=== PATIENT | male | born 1990 | race Caucasian/White ===

== ENCOUNTER 2025-03-02 18:57 | Emergency (ER) | payer OTHER, SELFPAY ==
[2025-03-02 19:00] VITALS: BP 149/88; PULSE 87; RESP 20; TEMP 36.9; O2SAT 97; BMI 38.0
--- NOTE | 2025-03-02 19:08 | EDS_ITS ---
HPI History of Present Illness Chief Complaint: Trauma [facility] Home Medications ?Medication ?Instructions ?Recorded ?Last Taken ?Type NK 03/02/25 Unknown History Allergy/AdvReac Type Severity Reaction Status Date / Time No Known Allergies Allergy Verified 03/02/25 19:04 Social History Smoking Status: Never smoker EXAM Physical Exam Const Vital Signs: 03/02/25 19:00 03/02/25 19:19 03/02/25 20:00 Temperature 98.4 F Temperature Source Oral Pulse Rate 87 96 Respiratory Rate 20 H 21 H Respiratory Effort Normal Non-Labored Respiratory Depth Normal Respiratory Pattern Normal Blood Pressure 149/88 H Blood Pressure Mean 108 Pulse Ox 97 93 Oxygen Delivery Method Room Air Room Air Room Air 03/02/25 21:00 03/02/25 22:00 03/02/25 23:00 Temperature Temperature Source Pulse Rate 50 L 87 86 Respiratory Rate 19 H 19 H 17 Respiratory Effort Respiratory Depth Respiratory Pattern Blood Pressure 94/76 129/78 H 116/68 Blood Pressure Mean 82 95 84 Pulse Ox 96 96 97 Oxygen Delivery Method Room Air Room Air Room Air MDM MDM MDM Narrative Medical decision making narrative: HISTORY OF PRESENT ILLNESS: Chief complaint: Fall 34-year-old male presents after fall from [place] approximately 10 feet. He states occurred today. Notes is able to ambulate after fall however once he called EMS patient could not ambulate. He further states he suffered mechanical fall. Denies loss of conscious but notes head trauma. Takes no blood thinners. REVIEW OF SYSTEMS: Pertinent positives: Back pain Pertinent negatives: Vomiting PHYSICAL EXAM: Nursing triage notes reviewed, Vital signs reviewed Primary Survey Airway: Intact Breathing: Bilateral breath sounds Circulation: Palpable bilateral femorals, Palpable bilateral radial, Palpable bilateral DP and Palpable bilateral PT Disability / Spine precautions GCS Score: Eye Openin Verbal Response: 5 Motor Response: 6 Secondary Survey Constitutional: Please see MDM Head: Atraumatic, Midface stable, NO jaw malocclusion, No Cephalohematoma, and No Lacerations noted Eye: Pupils equal round and reactive to light, Extraocular muscles intact and No periorbital ecchymosis or stepoff, no evidence of entrapment ENT: Oropharynx clear, no lacerations, no hemotympanum, no raccoon eyes or borja sign Cervical spine / Neck: No cervical spine bony tenderness, crepitance, or stepoff deformity Trachea midline Lungs: Clear to auscultation, No asymmetric rise and No crepitus, no flail chest Cardiac: Regular rate and rhythm and No murmurs Abdomen: Soft, Nontender and No rebound Pelvis: Pelvis stable to compression : No evidence of genital injury Back: Significant TTP over lumbar spine. No obvious step-offs or deformities noted. Neuro: . Intact sensation L1-S1 dermatomal distributions. Intact 5/5 strength in hip flexion (T12-L3). Knee extension (L2-L4). Ankle dorsiflexion (L4-L5). Ankle plantar flexion (S1). Great toe extension (L5). 2+ patellar and Achilles DTRs. Extremities: NO gross Deformities, full range of motion with upper extremity wrist motion, elbow and shoulder motion. Intact knee flexion bilaterally. Intact plantar and dorsiflexion bilaterally. Psych: Normal affect Nursing triage notes reviewed, Vital signs reviewed MEDICAL DECISION MAKING: Chief Complaint: please see HPI External records reviewed: No prior ED visits Factors affecting care: none Social determinants of health: denies drug use History obtained from others: EMS Consults: none [facility] Narrative: Patient was initially hemodynamically, afebrile, nontoxic-appearing. Primary secondary trauma surveys concerning for the fall I considered the following differential diagnosis: Traumatic injuries of the head, axial skeleton, chest abdomen pelvis I obtained a broad lab and imaging work to further determine if the patient was suffering from a life-threatening etiology. Initially treat the patient with IV morphine, Zofran and 1 L normal saline. ALL IMAGES (IF OBTAINED) HAVE BEEN PERSONALLY REVIEWED AND INTERPRETED BY MYSELF. CT scan of the head, cervical spine, thoracic spine, chest abdomen pelvis shows no evidence of obvious bony abnormality. CT scan lumbar spine was read reviewed personally myself showed a L1 compression fracture. Of note and the patient ED course he suffered a syncopal episode. This occurred approximately 2129. Patient noted feeling hot, flushed, dizzy EKG at this time was nonischemic, not arrhythmogenic, no signs of WW, no signs of Brugada syndrome, no signs of right heart strain, it was normal sinus rhythm rate of 71, normal axis, normal intervals, no STEMI High-sensitivity troponin is negative, no evidence of myocardial ischemia Tertiary trauma exam with no new traumatic injuries. Patient did ambulate here without significant difficulty. Repeat neurologic exam shows an intact spine. The patient and/or family, caregivers express understanding. The patient and/or family, caregivers agrees with the plan. Shared decision making: I will have a discussion with the patient and or visitors regarding risk/benefits of further testing or admission. They will be made aware of of the risk/benefits inherent in this decision they will be given the opportunity to voice understanding. Total critical care time today provided was at least 0 minutes. This excludes separately billable procedures. Critical care time (if documented) is secondary to the patient having high probability of clinically significant/life threatening deterioration in the patient's condition which required my urgent intervention. Impression: 1. Fall 2. L1 compression fracture Dispo: Discharge This note was generated with [employer] dictation software. It may contain incorrect words, spelling, and punctuation that were not noted in review of the chart prior to signing. Lab Data Labs: Laboratory Results - last 24 hr 03/02/25 03/02/25 19:31 21:44 WBC 12.4 H RBC 4.67 Hgb 13.0 Hct 38.5 L MCV 82.4 MCH 27.8 MCHC 33.8 RDW Std Deviation 37.7 RDW Coeff of Connie 12.5 Plt Count 240 MPV 9.3 Immature Gran % (Auto) 0.600 Neut % (Auto) 78.7 H Lymph % (Auto) 13.1 L [place] % (Auto) 6.7 Eos % (Auto) 0.6 Baso % (Auto) 0.3 Absolute Neuts (auto) 9.8 H Absolute Lymphs (auto) 1.63 Nucleated RBC % 0 Sodium 138 Potassium 3.5 Chloride 107 Carbon Dioxide 20.4 L Anion Gap 11 BUN 13 Creatinine 0.80 Estim Creat Clear Calc 174.05 Est GFR (MDRD) Non-Af 119 BUN/Creatinine Ratio 16.0 Glucose 100 H Calcium 8.2 Total Bilirubin 0.28 Direct Bilirubin < 0.08 AST 29 ALT 18 Alkaline Phosphatase 52 Troponin T High Sens < 6 Troponin T Hi Sens 2 Hr 9 Total Protein 6.1 Albumin 3.7 Globulin 2.5 Radiography Diagnostic Testing: Clinical Impression(s) from Imaging Studies Brain CT 03/02/25 19:45 IMPRESSION: No acute intracranial abnormality. Reading Location: [id number] Cervical Spine CT 03/02/25 19:45 IMPRESSION: No acute fracture or malalignment. Reading Location: [facility] Chest/Abdomen/Pelvis CT 03/02/25 19:45 IMPRESSION: 1. Mild acute L1 vertebral body compression fracture. 2. No acute injury in the chest, abdomen or pelvis. 3. Splenic artery aneurysm (1.2 cm). Reading Location: [facility] Lumbar Spine CT 03/02/25 19:45 IMPRESSION: Acute mild anterosuperior L1 compression fracture. Reading Location: [facility] Thoracic Spine CT 03/02/25 19:45 IMPRESSION: Acute mild anterosuperior L1 compression fracture. Reading Location: [facility] Discharge Plan Triage Chief Complaint: Trauma ED Provider: Guanako Mei Dx/Rx/DC Orders Prescriptions: No Action NK Primary Care Provider: Mariella Duarte NP Referrals: Mariella Duarte NP, [employer]CTION[employer] AGENCY DIRECTOR-C [Primary Care Provider, Medical] Print Language: Uzbek
[2025-03-02] MEDS: 0.9% Normal Saline (1000mL) 1,000 ML 999 ML IV ×2 (19:26→21:40)
[2025-03-02 19:37] LABS: Hematocrit 38.5 % (40-54); Hemoglobin 13.0 g/dL (13.0-16.5); Immature Granulocytes Count 0.070 X10^3/uL (0.0-0.0); Mean Corp Hgb Conc 33.8 g/dL (32-36); Mean Corpuscular Volume 82.4 fL (80-94); Mean Platelet Vol. 9.3 fl (6.2-12.0); NRBC Flagged by Analyzer 0 % (0-5); Platelet Count 240 K/mm3 (150-450); RBC Distribution Width CV 12.5 % (11.6-14.6); RBC Distribution Width SD 37.7 fl (35.1-43.9); Red Blood Count 4.67 M/mm3 (4.6-6.2); White Blood Count 12.4 K/mm3 (4.4-11.0)
--- NOTE | 2025-03-02 19:45 | CT_ITS ---
PROCEDURE: CT CHEST, ABD, PEL W/CONTRAST 03/02/2025 REASON FOR EXAM: FALL, LOW BACK PAIN TECHNIQUE: Chest, abdomen and pelvis CT with intravenous contrast. Coronal and Sagittal reconstruction series were provided. One or more dose reduction techniques were used (e.g., Automated exposure control, adjustment of the mA and/or kV according to patient size, use of iterative reconstruction technique. PATIENT PREPARATION: Per protocol CONTRAST: Isovue 370 VOLUME: 94mL RADIATION DOSE SUMMARY: CTDlvol: 52.81, 27.63 mGy DLP: 2207, 1589 mGycm COMPARISON: None. FINDINGS: CHEST: LUNGS: No pulmonary mass. No focal airspace consolidation. Minimal dependent lower lobe atelectasis bilaterally. PLEURAL SPACES: No pleural effusion. No pneumothorax. HEART: No cardiomegaly. No significant pericardial effusion. MEDIASTINUM/HILUM: No significant lymphadenopathy. AORTA: No aneurysm or dissection. ESOPHAGUS: Mild fluid in the distal esophagus, may reflect esophageal dysmotility or reflux disease. SOFT TISSUES: The soft tissues are unremarkable. BONES: No acute osseous abnormality. ABDOMEN AND PELVIS: LIVER: Unremarkable. No focal lesions. GALLBLADDER: Unremarkable. No calcified stone. BILE DUCTS: No ductal dilation. PANCREAS: Unremarkable. SPLEEN: Unremarkable. ADRENAL GLANDS: Unremarkable. KIDNEYS: Unremarkable. No hydronephrosis or hydroureter. STOMACH AND BOWEL: No obstruction or perforation. No wall thickening. No CT evidence of colitis or acute diverticulitis. APPENDIX: Normal-appearing appendix. No CT evidence for appendicitis. RETRO/PERITONEUM: No free fluid. No free air. LYMPH NODES: No lymphadenopathy. PELVIC ORGANS: Unremarkable urinary bladder and seminal vesicles. Nonspecific prostate gland calcifications. VASCULATURE: No aortic aneurysm. There is a 1.2 cm splenic artery aneurysm SOFT TISSUES: The soft tissues are unremarkable. BONES: Acute anterosuperior compression fracture of the L1 vertebral body with roughly 10-15% loss in body height. CT/CT Chest, Abd, Pel w/Contrast IMPRESSION: 1. Mild acute L1 vertebral body compression fracture. 2. No acute injury in the chest, abdomen or pelvis. 3. Splenic artery aneurysm (1.2 cm). Reading Location: [facility]
--- NOTE | 2025-03-02 19:45 | CT_ITS ---
PROCEDURE: SPINE LUMBAR WITHOUT CONTRAST; SPINE THORACIC WITHOUT CONTRAS 03/02/2025 REASON FOR EXAM: FALL, LOW BACK PAIN; MID BACK PAIN TECHNIQUE: Procedure Code: CTSPL; CTSPTH Modality: CT Procedure: SPINE LUMBAR WITHOUT CONTRAST; SPINE THORACIC WITHOUT CONTRAS Coronal and Sagittal reconstruction series were provided. One or more dose reduction techniques were used (e.g., Automated exposure control, adjustment of the mA and/or kV according to patient size, use of iterative reconstruction technique COMPARISON: None. RADIATION DOSE SUMMARY: CTDlvol: 42.11, 22.80, 26.54 mGy DLP: 1813, 11.40, 795 mGycm FINDINGS: BONES: Acute anterosuperior compression fracture of the L1 vertebral body with roughly 10-15% loss in body height. No focal osseous lesion. Bony alignment is anatomic. Nonspecific straightening of the normal lumbar lordosis. DISCS / DEGENERATIVE CHANGES: No significant disc or facet degeneration. No significant central canal or neural foraminal stenosis. SOFT TISSUES: No prevertebral soft tissue swelling. No apical pneumothorax. CT/Spine Lumbar without Contrast IMPRESSION: Acute mild anterosuperior L1 compression fracture. Reading Location: [id number]
--- NOTE | 2025-03-02 19:45 | CT_ITS ---
PROCEDURE: CT SPINE CERVICAL WITHOUT CONTRAST 03/02/2025 REASON FOR EXAM: FALL, NECK TRAUMA TECHNIQUE: Procedure Code: CTS Modality: CT Procedure: SPINE CERVICAL WITHOUT CONTRAS Coronal and Sagittal reconstruction series were provided. One or more dose reduction techniques were used (e.g., Automated exposure control, adjustment of the mA and/or kV according to patient size, use of iterative reconstruction technique. RADIATION DOSE SUMMARY: DLP: 7736.5 mGycm COMPARISON: None. FINDINGS: No acute fracture or subluxation. Alignment is anatomic. No significant degenerative changes appreciated. No prevertebral soft tissue swelling or unusual mineralization. CT/Spine Cervical without Contras IMPRESSION: No acute fracture or malalignment. Reading Location: [id number]
--- NOTE | 2025-03-02 19:45 | CT_ITS ---
PROCEDURE: SPINE LUMBAR WITHOUT CONTRAST; SPINE THORACIC WITHOUT CONTRAS 03/02/2025 REASON FOR EXAM: FALL, LOW BACK PAIN; MID BACK PAIN TECHNIQUE: Procedure Code: CTSPL; CTSPTH Modality: CT Procedure: SPINE LUMBAR WITHOUT CONTRAST; SPINE THORACIC WITHOUT CONTRAS Coronal and Sagittal reconstruction series were provided. One or more dose reduction techniques were used (e.g., Automated exposure control, adjustment of the mA and/or kV according to patient size, use of iterative reconstruction technique COMPARISON: None. RADIATION DOSE SUMMARY: CTDlvol: 42.11, 22.80, 26.54 mGy DLP: 1813, 11.40, 795 mGycm FINDINGS: BONES: Acute anterosuperior compression fracture of the L1 vertebral body with roughly 10-15% loss in body height. No focal osseous lesion. Bony alignment is anatomic. Nonspecific straightening of the normal lumbar lordosis. DISCS / DEGENERATIVE CHANGES: No significant disc or facet degeneration. No significant central canal or neural foraminal stenosis. SOFT TISSUES: No prevertebral soft tissue swelling. No apical pneumothorax. CT/Spine Thoracic without Contras IMPRESSION: Acute mild anterosuperior L1 compression fracture. Reading Location: [id number]
--- NOTE | 2025-03-02 19:45 | CT_ITS ---
PROCEDURE: CT BRAIN/HEAD WITHOUT CONTRAST 03/02/2025 REASON FOR EXAM: FALL, HEAD TRAUMA TECHNIQUE: Procedure Code: CTBR Modality: CT Procedure: BRAIN/HEAD WITHOUT CONTRAST Coronal and Sagittal reconstruction series were provided. One or more dose reduction techniques were used (e.g., Automated exposure control, adjustment of the mA and/or kV according to patient size, use of iterative reconstruction technique. RADIATION DOSE SUMMARY: CTDlvol: 44.99 mGy DLP: 863.6 mGycm COMPARISON: None. FINDINGS: No acute intracranial hemorrhage, extra-axial collection, mass effect or evidence of acute infarct. Ventricles and subarachnoid spaces are normal in size. Orbital contents are unremarkable. Intact skull base and calvarium. Clear paranasal sinuses and mastoid air cells. CT/Brain/Head without Contrast IMPRESSION: No acute intracranial abnormality. Reading Location: [id number]
[2025-03-02 19:55] LABS: AST(SGOT) 29 U/L (<=37); Alanine Aminotransfer ALT/SGPT 18 U/L (<=46); Albumin, Serum 3.7 g/dL (3.5-5.0); Alkaline Phosphatase 52 U/L (40-129); Anion Gap 11 (5-15); BUN 13 mg/dL (4-19); BUN/Creat Ratio 16.0 RATIO (10-20); Bilirubin, Direct < 0.08 mg/dL (0.00-0.30); Calcium,Total 8.2 mg/dL (7.6-11.0); Carbon Dioxide 20.4 mmol/L (21.0-32.0); Chloride 107 mmol/L (98-108); Estimated Creatinine Clearance 174.05 ml/min (50-250); Globulin 2.5 g/dL (2.2-4.2); Glucose 100 mg/dL (70-99); Potassium 3.5 mmol/L (3.3-5.1)
[2025-03-02 20:00] VITALS: PULSE 96; RESP 21; O2SAT 93
[2025-03-02 21:00] VITALS: BP 94/76; PULSE 50; RESP 19; O2SAT 96
--- NOTE | 2025-03-02 21:26 | EKG12_ITS ---
Test Reason : DYSRHYTHMIA Blood Pressure : */* mmHG Vent. Rate : 71 BPM Atrial Rate : 71 BPM P-R Int : 156 ms QRS Dur : 92 ms QT Int : 392 ms P-R-T Axes : 42 25 2 degrees QTcB Int : 425 ms Normal sinus rhythm Normal ECG Confirmed by Juan C Garcia ([id number]), editor in chief MELINDA ARDON ([id number]) on 03/03/2025 10:26:52 AM Referred By: Confirmed By: Juan C Garcia
[2025-03-02 22:00] VITALS: BP 129/78; PULSE 87; RESP 19; O2SAT 96
[2025-03-02 22:11] LABS: Troponin T High Sensitivity < 6 ng/L (<=22)
[2025-03-02 22:14] LABS: Troponin T High Sens 2 HR 9 ng/L (<=22)
[2025-03-02 23:00] VITALS: BP 116/68; PULSE 86; RESP 17; O2SAT 97
[2025-03-02 23:30] VITALS: BP 132/77; PULSE 88; RESP 18; TEMP 36.9; O2SAT 94
== END 2025-03-02 23:42 | disposition home or self-care (01) ==
PROVIDERS: Emergency Provider Emergency Medicine; PCP Nurse Practitioner Family; Visit Provider Emergency Medicine
DX: S32.019A Unspecified fracture of first lumbar vertebra, initial encounter for closed fracture (principal); W13.8XXA Fall from, out of or through other building or structure, initial encounter; R55 Syncope and collapse
CPT/HCPCS: 70450; 71260; 72125; 72128; 72131; 74177; 80048; 80076; 84484; 85025; 93005; 96361; 96372; 96374; 96375; 99285; Q9967; A4216; J2405